=== PATIENT | male | born 1980 | race Caucasian/White ===

== ENCOUNTER 2018-01-14 09:45 | Outpatient (CLI) | payer OTHER ==
--- NOTE | 2018-01-14 16:58 | MRI Report ---
EXAM: LEFT ANKLE/HINDFOOT MRI WITHOUT CONTRAST EXAM DATE: 01/14/2018 11:06 AM. CLINICAL HISTORY: Anterolateral left ankle pain after re-injuries. Difficulty running. COMPARISON: None. TECHNIQUE: Multiplanar, multisequence T1-weighted and fluid-sensitive sequences of the ankle/hindfoot without contrast. Other: None. FINDINGS: Bones: An os trigonum variant is present. No acute fracture. No abnormal marrow signal. Articular Cartilage: Unremarkable. Ligaments: The tibiofibular ligaments are intact. The anterior talofibular ligament is intact, but th ickened which makes from previous old injury. The posterior talofibular ligament is intact. The calca neofibular ligament is intact The deep and superficial deltoid and spring ligaments are intact. Anterior Tendons: The tibialis anterior, extensor hallucis longus, and extensor digitorum longus tend ons are unremarkable. Medial Tendons: Mild posterior tibialis tenosynovitis at the level of the medial malleolus. The flexo r digitorum longus and flexor hallucis longus tendons are unremarkable. Lateral Tendons: There is a moderate to large amount of fluid within the peroneal longus and brevis t endon sheaths from the level of the distal fibula to the level of the cuboid, consistent with tenosyn ovitis. No tendon tear. Achilles Tendon: The Achilles tendon is unremarkable. Musculature: No edema or fatty atrophy. Other: No effusions. The contents of the sinus tarsi and tarsal tunnel are unremarkable. No plantar f asciitis. There is an approximately 2.1 cm AP by 1.1 cm superior to inferior by 0.4 cm medial to late ral lobular and multiseptated T2 hyperintense and T1 hypointense subcutaneous mass at the lateral asp ect of the ankle at the level of the distal calcaneus, most suggestive of a ganglion. IMPRESSION: 1. Moderate to severe peroneal longus and brevis tenosynovitis. No tendon tear. 2. Thickened, but intact anterior talofibular ligament which may be from a previous old injury. 3. Mild posterior tibialis tenosynovitis. 4. A 2.1 x 1.1 x 0.4 cm lobular and multiseptated subcutaneous mass at the lateral aspect of the ankl e is most suggestive of a ganglion. [facility] MUSCULOSKELETAL RADIOLOGY SECTION Referring Provider Line: [phone] SITE ID: [id number]
== END 2018-01-14 09:46 | disposition home or self-care (01) ==
LOC: DI 09:45
PROVIDERS: ATTEND Student in an Organized Health Care Education/Training Program
DX: M65.872 Other synovitis and tenosynovitis, left ankle and foot (principal); R22.42 Localized swelling, mass and lump, left lower limb